=== PATIENT | female | born 1980 | race Caucasian/White ===

== ENCOUNTER 2021-09-05 13:35 | Emergency (ER) | payer BC ==
[2021-09-05] MEDS ORDERED: Sodium Chloride 0.9% 10 ML Syringe FLUSH PRN (16:35)
[2021-09-05] MEDS ORDERED: diphenhydrAMINE 50 MG/ML SDV IVPUSH PRN (16:36)
[2021-09-05] MEDS ORDERED: EPINEPHrine 1 MG/ML SDV IM PRN (16:36)
[2021-09-05] MEDS ORDERED: Famotidine 20 MG/2 ML SDV IVPUSH PRN (16:36)
[2021-09-05] MEDS ORDERED: methylPREDNISolone Sodium Succinate 125 MG/2 ML SDV IVPUSH PRN (16:36)
[2021-09-05] MEDS ORDERED: Sodium Chloride 0.9% 10 ML Syringe FLUSH SCH (16:45)
--- NOTE | 2021-09-05 17:23 | EDM.PDOC ---
ED HPI GENERAL MEDICAL PROBLEM - General Chief Complaint: Respiratory Problem Stated Complaint: COVID+ SOB Time Seen by Provider: 09/05/21 15:50 Source of Information: Reports: Patient History Limitations: Reports: No Limitations - History of Present Illness INITIAL COMMENTS - FREE TEXT/NARRATIVE: The patient presents with shortness of breath, fever, and cough. She is COVID positive. She was diagnosed 4 days ago. She started getting more short of breath today. She has no chest pain, abdominal pain, nausea or vomiting. She has a history of chronic bronchitis and had to use her inhaler. She also has hypothyroidism. She was wondering about getting the monoclonal antibodies. She quit smoking years ago. Onset: Gradual Duration: Day(s): (4) Severity: Moderate Improves with: Reports: None Worsens with: Reports: None Associated Symptoms: Reports: Cough, Fever/Chills, Shortness of Breath. Denies: Chest Pain, Headaches, Nausea/Vomiting Generalized Pain Score (Numeric/FACES): 5 - Related Data Allergies Allergy/AdvReac Type Severity Reaction Status Date / Time No Known Allergies Allergy Verified 09/05/21 14:26 Home Meds: Home Meds Albuterol [Proventil Neb Soln] 1 dose INH BID PRN 09/05/21 [History] Levothyroxine 75 mcg PO DAILY 09/05/21 [History] Past Medical History Respiratory History: Reports: Bronchitis, Recurrent, Other (See Below) - Infectious Disease History Infectious Disease History: Reports: Novel Coronavirus Social & Family History - Tobacco Use Tobacco Use Status *Q: Never Tobacco User Second Hand Smoke Exposure: No - Caffeine Use Caffeine Use: Reports: Coffee, Soda - Recreational Drug Use Recreational Drug Use: No ED ROS GENERAL - Review of Systems Review Of Systems: See Below Constitutional: Reports: Fever, Chills, Malaise, Weakness, Fatigue HEENT: Reports: No Symptoms Respiratory: Reports: Shortness of Breath, Cough Cardiovascular: Reports: No Symptoms Endocrine: Reports: No Symptoms GI/Abdominal: Reports: No Symptoms : Reports: No Symptoms Musculoskeletal: Reports: No Symptoms ED EXAM, GENERAL - Physical Exam Exam: See Below Exam Limited By: No Limitations General Appearance: Alert, No Apparent Distress Ears: Normal External Exam Nose: Normal Inspection Head: Atraumatic, Normocephalic Neck: Normal Inspection Respiratory/Chest: No Respiratory Distress, Lungs Clear, Normal Breath Sounds Cardiovascular: Regular Rate, Rhythm, No Edema, No Murmur GI/Abdominal: Soft, Non-Tender, No Organomegaly, No Mass Back Exam: Normal Inspection Course - Vital Signs Last Recorded V/S: Last Vital Signs Temp 97.2 F 09/05/21 14:25 Pulse 80 09/05/21 14:25 Resp 20 09/05/21 14:25 BP 140/89 09/05/21 14:25 Pulse Ox 100 09/05/21 14:25 - Orders/Labs/Meds Orders: Active Orders 24 hr Category Date Time Status Cardiac Monitoring [RC] . DIRECTED Care 09/05/21 16:35 Active Peripheral IV Care [RC] . DIRECTED Care 09/05/21 16:36 Active Vital Signs [RC] Q15M Care 09/05/21 16:37 Active Chest 1V Frontal [CR] Stat Exams 09/05/21 16:36 Taken EPINEPHrine [Adrenalin] Med 09/05/21 16:36 Active 0.3 mg IM ONETIME PRN Famotidine [Pepcid] Med 09/05/21 16:36 Active 20 mg IVPUSH ONETIME PRN Sodium Chloride 0.9% [Saline Flush] Med 09/05/21 16:35 Active 10 ml FLUSH ASDIRECTED PRN Sodium Chloride 0.9% [Saline Flush] Med 09/05/21 16:45 Active 30 ml FLUSH ASDIRECTED diphenhydrAMINE [Benadryl] Med 09/05/21 16:36 Active 50 mg IVPUSH ONETIME PRN methylPREDNISolone Sod Succ [Solu-MEDROL] Med 09/05/21 16:36 Active 125 mg IVPUSH ONETIME PRN Peripheral IV Insertion Adult [OM.PC] Stat Oth 09/05/21 16:35 Ordered Medication Orders Diphenhydramine HCl (Diphenhydramine 50 Mg/Ml Sdv) 50 mg IVPUSH ONETIME PRN PRN Reason: hypersensitivity reaction Epinephrine HCl (Epinephrine 1 Mg/Ml Sdv) 0.3 mg IM ONETIME PRN PRN Reason: hypersensitivity reaction Famotidine (Famotidine 20 Mg/2 Ml Sdv) 20 mg IVPUSH ONETIME PRN PRN Reason: hypersensitivity reaction Methylprednisolone Sodium Succinate (Methylprednisolone Sodium Succinate 125 Mg/2 Ml Sdv) 125 mg IVPUSH ONETIME PRN PRN Reason: hypersensitivity reaction Sodium Chloride (Sodium Chloride 0.9% 10 Ml Syringe) 10 ml FLUSH ASDIRECTED PRN PRN Reason: Keep Vein Open Sodium Chloride (Sodium Chloride 0.9% 10 Ml Syringe) 30 ml FLUSH ASDIRECTED SERGIO Labs: Laboratory Tests 09/05/21 09/05/21 09/05/21 Range/Units 17:04 17:04 17:04 WBC 3.72 L (3.98-10.04) K/mm3 RBC 4.57 (3.98-5.22) M/mm3 Hgb 13.5 (11.2-15.7) gm/dl Hct 41.2 (34.1-44.9) % MCV 90.2 (79.4-94.8) fl MCH 29.5 (25.6-32.2) pg MCHC 32.8 (32.2-35.5) g/dl RDW Std Deviation 42.9 (36.4-46.3) fL Plt Count 172 L (182-369) K/mm3 MPV 10.8 (9.4-12.3) fl Neut % (Auto) 75.5 H (34.0-71.1) % Lymph % (Auto) 14.2 L (19.3-51.7) % [place] % (Auto) 9.7 (4.7-12.5) % Eos % (Auto) 0.3 L (0.7-5.8) Baso % (Auto) 0.3 (0.1-1.2) % Neut # (Auto) 2.81 (1.56-6.13) K/mm3 Lymph # (Auto) 0.53 L (1.18-3.74) K/mm3 [place] # (Auto) 0.36 (0.24-0.36) K/mm3 Eos # (Auto) 0.01 L (0.04-0.36) K/mm3 Baso # (Auto) 0.01 (0.01-0.08) K/mm3 D-Dimer, Quantitative < 0.19 L (0.19-0.50) mg/L Sodium 139 (136-145) mEq/L Potassium 3.4 L (3.5-5.1) mEq/L Chloride 102 (98-107) mEq/L Carbon Dioxide 27 (21-32) mEq/L Anion Gap 13.4 (5-15) BUN 5 L (7-18) mg/dL Creatinine 0.7 (0.55-1.02) mg/dL Est Cr Clr Drug Dosing 105.27 mL/min Estimated GFR (MDRD) > 60 (>60) mL/min BUN/Creatinine Ratio 7.1 L (14-18) Glucose 94 (70-99) mg/dL Lactic Acid (0.4-2.0) mmol/L Calcium 8.3 L (8.5-10.1) mg/dL Total Bilirubin 0.4 (0.2-1.0) mg/dL AST 26 (15-37) U/L ALT 57 (14-59) U/L Alkaline Phosphatase 40 L (46-116) U/L C-Reactive Protein <0.2 (<1.0) mg/dL Total Protein 7.1 (6.4-8.2) g/dl Albumin 3.8 (3.4-5.0) g/dl Globulin 3.3 gm/dL Albumin/Globulin Ratio 1.2 (1-2) 09/05/21 Range/Units 17:04 WBC (3.98-10.04) K/mm3 RBC (3.98-5.22) M/mm3 Hgb (11.2-15.7) gm/dl Hct (34.1-44.9) % MCV (79.4-94.8) fl MCH (25.6-32.2) pg MCHC (32.2-35.5) g/dl RDW Std Deviation (36.4-46.3) fL Plt Count (182-369) K/mm3 MPV (9.4-12.3) fl Neut % (Auto) (34.0-71.1) % Lymph % (Auto) (19.3-51.7) % [place] % (Auto) (4.7-12.5) % Eos % (Auto) (0.7-5.8) Baso % (Auto) (0.1-1.2) % Neut # (Auto) (1.56-6.13) K/mm3 Lymph # (Auto) (1.18-3.74) K/mm3 [place] # (Auto) (0.24-0.36) K/mm3 Eos # (Auto) (0.04-0.36) K/mm3 Baso # (Auto) (0.01-0.08) K/mm3 D-Dimer, Quantitative (0.19-0.50) mg/L Sodium (136-145) mEq/L Potassium (3.5-5.1) mEq/L Chloride (98-107) mEq/L Carbon Dioxide (21-32) mEq/L Anion Gap (5-15) BUN (7-18) mg/dL Creatinine (0.55-1.02) mg/dL Est Cr Clr Drug Dosing mL/min Estimated GFR (MDRD) (>60) mL/min BUN/Creatinine Ratio (14-18) Glucose (70-99) mg/dL Lactic Acid 0.9 (0.4-2.0) mmol/L Calcium (8.5-10.1) mg/dL Total Bilirubin (0.2-1.0) mg/dL AST (15-37) U/L ALT (14-59) U/L Alkaline Phosphatase (46-116) U/L C-Reactive Protein (<1.0) mg/dL Total Protein (6.4-8.2) g/dl Albumin (3.4-5.0) g/dl Globulin gm/dL Albumin/Globulin Ratio (1-2) Meds: Medications Generic Name Dose Route Start Last Admin Trade Name Freq PRN Reason Stop Dose Admin Diphenhydramine HCl 50 mg 09/05/21 16:36 Diphenhydramine 50 Mg/Ml Sdv IVPUSH ONETIME PRN hypersensitivity reaction Epinephrine HCl 0.3 mg 09/05/21 16:36 Epinephrine 1 Mg/Ml Sdv IM ONETIME PRN hypersensitivity reaction Famotidine 20 mg 09/05/21 16:36 Famotidine 20 Mg/2 Ml Sdv IVPUSH ONETIME PRN hypersensitivity reaction Methylprednisolone Sodium Succinate 125 mg 09/05/21 16:36 Methylprednisolone Sodium Succinate 125 Mg/2 Ml Sdv IVPUSH ONETIME PRN hypersensitivity reaction Sodium Chloride 10 ml 09/05/21 16:35 Sodium Chloride 0.9% 10 Ml Syringe FLUSH ASDIRECTED PRN Keep Vein Open Sodium Chloride 30 ml 09/05/21 16:45 Sodium Chloride 0.9% 10 Ml Syringe FLUSH ASDIRECTED SERGIO Discontinued Medications Generic Name Dose Route Start Last Admin Trade Name Rajeev PRN Reason Stop Dose Admin SOTROVIMAB 500 mg/ Sodium 108 mls @ 216 mls/hr 09/05/21 16:36 09/05/21 17:31 Chloride IV 09/05/21 17:05 216 mls/hr ONETIME ONE Administration - Re-Assessments/Exams Free Text/Narrative Re-Assessment/Exam: 09/05/21 17:25 I ordered an IV saline lock, CXR, labs and monoclonal antibodies and sotrovimab. 09/05/21 18:08 Her WBC was a little low at 3.72. Her D-dimer is negative. Her K was a little low at 3.4. Her CRP was negative. Her CXR show no infiltrates. I have ordered the monoclonal antibodies. I will discharge her home after that. 09/05/21 18:16 The patient was not interested in taking the dexamethasone. I will discharge her home. Departure - Departure Time of Disposition: 18:55 Disposition: Home, Self-Care 01 Condition: Good Clinical Impression: COVID-19 - Discharge Information *PRESCRIPTION DRUG MONITORING PROGRAM REVIEWED*: Not Applicable *COPY OF PRESCRIPTION DRUG MONITORING REPORT IN PATIENT JELENA: Not Applicable Referrals: Francheska Linton PA-C [Primary Care Provider] - 1 Week Forms: ED Department Discharge Additional Instructions: Use your inhaler 2 puffs every 6 hours as needed for shortness of breath. Drink plenty of fluids. Take tylenol or motrin as needed for fever or pain. Quarantine for 10 days from the start of onset of your symptoms. Please return if you are worse. Sepsis Event Note (ED) - Focused Exam Vital Signs: Vital Signs Temp Pulse Resp BP Pulse Ox 09/05/21 14:25 97.2 F 80 20 140/89 100 - My Orders Last 24 Hours: My Active Orders 09/05/21 16:35 Cardiac Monitoring [RC] . DIRECTED Sodium Chloride 0.9% [Saline Flush] 10 ml FLUSH ASDIRECTED PRN Peripheral IV Insertion Adult [OM.PC] Stat 09/05/21 16:36 Peripheral IV Care [RC] . DIRECTED Chest 1V Frontal [CR] Stat EPINEPHrine [Adrenalin] 0.3 mg IM ONETIME PRN Famotidine [Pepcid] 20 mg IVPUSH ONETIME PRN diphenhydrAMINE [Benadryl] 50 mg IVPUSH ONETIME PRN methylPREDNISolone Sod Succ [Solu-MEDROL] 125 mg IVPUSH ONETIME PRN 09/05/21 16:37 Vital Signs [RC] Q15M 09/05/21 16:45 Sodium Chloride 0.9% [Saline Flush] 30 ml FLUSH ASDIRECTED - Assessment/Plan Last 24 Hours: My Active Orders 09/05/21 16:35 Cardiac Monitoring [RC] . DIRECTED Sodium Chloride 0.9% [Saline Flush] 10 ml FLUSH ASDIRECTED PRN Peripheral IV Insertion Adult [OM.PC] Stat 09/05/21 16:36 Peripheral IV Care [RC] . DIRECTED Chest 1V Frontal [CR] Stat EPINEPHrine [Adrenalin] 0.3 mg IM ONETIME PRN Famotidine [Pepcid] 20 mg IVPUSH ONETIME PRN diphenhydrAMINE [Benadryl] 50 mg IVPUSH ONETIME PRN methylPREDNISolone Sod Succ [Solu-MEDROL] 125 mg IVPUSH ONETIME PRN 09/05/21 16:37 Vital Signs [RC] Q15M 09/05/21 16:45 Sodium Chloride 0.9% [Saline Flush] 30 ml FLUSH ASDIRECTED
--- NOTE | 2021-09-06 07:22 | CR ---
Chest: Frontal view of the chest was obtained. Comparison: No prior chest imaging is available. Heart size and mediastinum are normal. Minimal scoliosis is noted within the spine. Lungs are clear with no acute parenchymal change. Impression: 1. Nothing acute is seen on frontal chest x-ray. Diagnostic code #1
== END 2021-09-05 20:00 | disposition home or self-care (01) ==
LOC: JD.ED 13:35
DX: U07.1 COVID-19 (principal)
CPT/HCPCS: 36415; 71045; 80053; 83605; 85025; 85379; 86140; 99285; M0247; Q0247

== ENCOUNTER 2021-10-16 14:48 | Emergency (ER) | payer BC ==
--- NOTE | 2021-10-16 15:44 | EDM.PDOC ---
ED HPI GENERAL MEDICAL PROBLEM - General Chief Complaint: Respiratory Problem Stated Complaint: COUGH/DIZZINESS/BACK PAIN Time Seen by Provider: 10/16/21 15:16 Source of Information: Reports: Patient, RN Notes Reviewed History Limitations: Reports: No Limitations - History of Present Illness INITIAL COMMENTS - FREE TEXT/NARRATIVE: Patient is a 40-year-old female who presents to the ER for ongoing cough/chest discomfort and back discomfort. States that she had Covid at beginning of August. She has been working with her primary care provider, Francheska Linton for ongoing issues with cough/chest discomfort. She had a PFT done for 5 days ago, which demonstrated that her albuterol inhalers were not helping her and that her diffusion capacity was lowered. Her PCP thought it could have been due to iron issues she was evaluated for this and said that her iron was only "slightly low". Patient again is still complaining of a dry cough, she states that over the last week she has been having issues where if she stands up or exerts herself much at all, that she has some dizziness/lightheadedness, and feels her heart "racing". States that she has not actually taken her pulse at that time but also states that her pulse is typically in the 50s and 60s and anytime he goes above that she feels as if it is racing. Not having any fevers or chills, or any sort of vomiting or diarrhea. She is complaining of some mild nausea, and states he is not really been eating much due to the nausea. - Related Data Allergies Allergy/AdvReac Type Severity Reaction Status Date / Time No Known Allergies Allergy Verified 09/05/21 14:26 Home Meds: Home Meds Albuterol [Proventil Neb Soln] 1 dose INH BID PRN 09/05/21 [History] Levothyroxine 75 mcg PO DAILY 09/05/21 [History] Past Medical History Respiratory History: Reports: Bronchitis, Recurrent, Other (See Below) - Infectious Disease History Infectious Disease History: Reports: Novel Coronavirus Social & Family History - Caffeine Use Caffeine Use: Reports: Coffee, Soda ED ROS GENERAL - Review of Systems Review Of Systems: Comprehensive ROS is negative, except as noted in HPI. ED EXAM, GENERAL - Physical Exam Exam: See Below Exam Limited By: No Limitations General Appearance: Alert, WD/WN, No Apparent Distress Respiratory/Chest: No Respiratory Distress, Lungs Clear, Normal Breath Sounds, No Accessory Muscle Use, Chest Non-Tender Cardiovascular: Normal Peripheral Pulses, Regular Rate, Rhythm, No Edema GI/Abdominal: Normal Bowel Sounds, Soft, Non-Tender, No Distention, No Mass Extremities: Normal Inspection, Normal Capillary Refill Neurological: Alert, Oriented, Normal Cognition, No Motor/Sensory Deficits Psychiatric: Normal Affect, Normal Mood Skin Exam: Warm, Dry, Intact, Normal Color, No Rash Course - Vital Signs Last Recorded V/S: Last Vital Signs Temp 98.4 F 10/16/21 15:14 Pulse 83 10/16/21 15:14 Resp 18 10/16/21 15:14 BP 118/81 10/16/21 15:14 Pulse Ox 100 10/16/21 15:14 - Orders/Labs/Meds Orders: Active Orders 24 hr Category Date Time Status Chest 2V [CR] Stat Exams 10/16/21 15:38 Ordered Labs: Laboratory Tests 10/16/21 10/16/21 Range/Units 15:52 15:52 WBC 3.90 L (3.98-10.04) K/mm3 RBC 4.51 (3.98-5.22) M/mm3 Hgb 13.8 (11.2-15.7) gm/dl Hct 41.6 (34.1-44.9) % MCV 92.2 (79.4-94.8) fl MCH 30.6 (25.6-32.2) pg MCHC 33.2 (32.2-35.5) g/dl RDW Std Deviation 45.8 (36.4-46.3) fL Plt Count 239 (182-369) K/mm3 MPV 10.0 (9.4-12.3) fl Neut % (Auto) 66.5 (34.0-71.1) % Lymph % (Auto) 17.4 L (19.3-51.7) % [place] % (Auto) 13.3 H (4.7-12.5) % Eos % (Auto) 1.8 (0.7-5.8) Baso % (Auto) 1.0 (0.1-1.2) % Neut # (Auto) 2.59 (1.56-6.13) K/mm3 Lymph # (Auto) 0.68 L (1.18-3.74) K/mm3 [place] # (Auto) 0.52 H (0.24-0.36) K/mm3 Eos # (Auto) 0.07 (0.04-0.36) K/mm3 Baso # (Auto) 0.04 (0.01-0.08) K/mm3 Sodium 140 (136-145) mEq/L Potassium 4.0 (3.5-5.1) mEq/L Chloride 104 (98-107) mEq/L Carbon Dioxide 26 (21-32) mEq/L Anion Gap 14.0 (5-15) BUN 13 (7-18) mg/dL Creatinine 0.9 (0.55-1.02) mg/dL Est Cr Clr Drug Dosing 82.98 mL/min Estimated GFR (MDRD) > 60 (>60) mL/min BUN/Creatinine Ratio 14.4 (14-18) Glucose 93 (70-99) mg/dL Calcium 8.6 (8.5-10.1) mg/dL Total Bilirubin 0.7 (0.2-1.0) mg/dL AST 14 L (15-37) U/L ALT 18 (14-59) U/L Alkaline Phosphatase 37 L (46-116) U/L Total Protein 6.6 (6.4-8.2) g/dl Albumin 3.8 (3.4-5.0) g/dl Globulin 2.8 gm/dL Albumin/Globulin Ratio 1.4 (1-2) - Re-Assessments/Exams Free Text/Narrative Re-Assessment/Exam: 10/16/21 15:43 Patient presents to the ER for her ongoing cough/chest/back discomfort. I highly suspect long Covid type symptoms due to her presentation. But she has not really been eating or drinking much anything for the past few days so we will go ahead and check some basic labs to make sure there is no electrolyte abnormalities and get a chest x-ray for further evaluation. Patient verbalized understanding of this plan. Due to the feelings of her heart racing with activity we will likely try to send her home with a Holter monitor so she can follow-up with her primary care provider for results of this as well. 10/16/21 16:55 Labs are unremarkable. The patient's metabolic panel is unimpressive for any acute abnormalities. Due to the patient's reported "heart racing" with exertion we will go ahead and send her with a Holter monitor for ongoing management and have her follow-up with Francheska Linton next week for ongoing management. Departure - Departure Time of Disposition: 16:55 Disposition: Home, Self-Care 01 Condition: Good Clinical Impression: Long COVID - Discharge Information *PRESCRIPTION DRUG MONITORING PROGRAM REVIEWED*: No *COPY OF PRESCRIPTION DRUG MONITORING REPORT IN PATIENT JELENA: No Referrals: Francheska Linton PA-C [Primary Care Provider] - Forms: ED Department Discharge Additional Instructions: You were evaluated in the ER today for your generalized symptoms. All laboratory evaluation is essentially unremarkable, you are not anemic by lab standards, and have no further electrolyte abnormalities that would be the cause of your issues today. Due to your reported feelings of your heart racing while you are up and exerting yourself, we will send you home with a Holter monitor for ongoing cardiac monitoring over the next 48 hours to make sure that you are not experiencing any cardiac dysrhythmias. You will need to follow-up with Francheska Linton, probably sometime next week for results of this due to this week being a short holiday week. It is likely the cause of your symptoms are due to long Covid, Covid does typically take sometimes months to feel better from, and can have lingering lung issues/heart issues. Do not hesitate to return to the ER if symptoms should change or worsen. Sepsis Event Note (ED) - Evaluation Sepsis Screening Result: No Definite Risk - Focused Exam Vital Signs: Vital Signs Temp Pulse Resp BP Pulse Ox 10/16/21 15:14 98.4 F 83 18 118/81 100 - My Orders Last 24 Hours: My Active Orders 10/16/21 15:38 Chest 2V [CR] Stat - Assessment/Plan Last 24 Hours: My Active Orders 10/16/21 15:38 Chest 2V [CR] Stat
--- NOTE | 2021-10-16 16:58 | CR ---
Chest: Frontal view of the chest was obtained. Comparison: Prior chest x-ray of 09/05/21. Heart size and mediastinum are within normal limits. Lungs are clear with no acute parenchymal change. Bony structures show slight scoliosis within the spine. No acute osseous finding is seen. Impression: 1. Nothing acute is seen on frontal chest x-ray. Diagnostic code #1
== END 2021-10-16 17:15 | disposition home or self-care (01) ==
LOC: JD.ED 14:48
DX: U07.1 COVID-19 (principal)
CPT/HCPCS: 36415; 71046; 71046-26; 80053; 85025; 93225; 93226; 99285-25

== ENCOUNTER 2022-07-15 06:19 | Emergency (ER) | payer BC, OTHER ==
[2022-07-15] MEDS ORDERED: Lidocaine 1% 10 ML MDV INJECT ONE (06:41)
== END 2022-07-15 06:59 | disposition home or self-care (01) ==
LOC: JD.ED 06:19
DX: S61.210A Laceration without foreign body of right index finger without damage to nail, initial encounter (principal); Z88.0 Allergy status to penicillin; Z88.8 Allergy status to other drugs, medicaments and biological substances; Z86.16 Personal history of COVID-19; Z79.899 Other long term (current) drug therapy; W26.8XXA Contact with other sharp object(s), not elsewhere classified, initial encounter; Y99.0 Civilian activity done for income or pay
CPT/HCPCS: 12001; 99282

== ENCOUNTER 2022-11-16 09:10 | Emergency (ER) | payer BC ==
[2022-11-16] MEDS ORDERED: Metoclopramide 10 MG/2 ML SDV IVPUSH ONE (10:14)
[2022-11-16] MEDS ORDERED: diphenhydrAMINE 50 MG/ML SDV IVPUSH ONE (10:14)
[2022-11-16] MEDS ORDERED: Glucagon,Human Recombinant 1 MG Vial IVPUSH ONE (10:14)
== END 2022-11-16 12:20 | disposition home or self-care (01) ==
LOC: JD.ED 09:10
DX: T18.128A Food in esophagus causing other injury, initial encounter (principal); Z72.0 Tobacco use; Z88.0 Allergy status to penicillin; Z88.8 Allergy status to other drugs, medicaments and biological substances; Z91.018 Allergy to other foods
CPT/HCPCS: 96374; 96375; 99283; J1200; J1610; J2765

== ENCOUNTER 2024-03-12 18:30 | Emergency (ER) | payer SELFPAY ==
[2024-03-12] MEDS: Glucagon,Human Recombinant 1 MG Vial IVPUSH ONE (19:59)
[2024-03-12] MEDS: Lactated Ringers 1,000 ML IV ONE (20:05)
[2024-03-12] MEDS: Pantoprazole 40 MG Tab.CR PO STA (21:17)
== END 2024-03-12 21:28 | disposition home or self-care (01) ==
LOC: JD.ED 18:30
DX: R09.A0 Foreign body sensation, unspecified (principal); R07.0 Pain in throat; F17.210 Nicotine dependence, cigarettes, uncomplicated; Z88.0 Allergy status to penicillin; Z88.8 Allergy status to other drugs, medicaments and biological substances; Z91.018 Allergy to other foods; Z79.899 Other long term (current) drug therapy; Z90.49 Acquired absence of other specified parts of digestive tract
CPT/HCPCS: 96361; 96374; 99283; A9270; J1610; J7120

== ENCOUNTER 2024-03-20 07:00 | Day surgery (SDC) | payer SELFPAY ==
[~2024-03-20 07:00] MED LIST: Sodium Chloride 0.9% 10 ML Syringe FLUSH PRN; Sodium Chloride 0.9% 10 ML Syringe FLUSH SCH
[2024-03-20] MEDS ORDERED: Propofol 200 MG/20 ML SDV ONE ×2 (07:33→08:24)
[2024-03-20] MEDS ORDERED: fentaNYL 100 MCG/2 ML SDV ONE (07:33)
[2024-03-20] MEDS ORDERED: Midazolam 1 MG/ML 2 ML SDV ONE (07:33)
[2024-03-20] MEDS ORDERED: Ondansetron 4 MG/2 ML SDV IVPUSH PRN (07:43)
[2024-03-20] MEDS: Lactated Ringers 1,000 ML IV SCH (08:13)
== END 2024-03-20 09:30 | disposition home or self-care (01) ==
LOC: JD.SDS 07:00
PROVIDERS: ATTEND Surgery
DX: K29.50 Unspecified chronic gastritis without bleeding (principal); K20.90 Esophagitis, unspecified without bleeding; K22.2 Esophageal obstruction; K22.89 Other specified disease of esophagus; F45.8 Other somatoform disorders; E06.3 Autoimmune thyroiditis; Z79.890 Hormone replacement therapy; Z87.891 Personal history of nicotine dependence; Z79.899 Other long term (current) drug therapy; Z88.0 Allergy status to penicillin; Z91.018 Allergy to other foods
CPT/HCPCS: 00731; J2250; J2704; J3010; J7120